=== PATIENT | male | born 1960 | race Two or more races ===

== ENCOUNTER → 2024-10-19 | Outpatient (CLI) | payer MEDICARE, SELFPAY ==
--- NOTE | 2024-10-19 09:12 | XR_ITS ---
Examination: Knee bilateral, 6 views Technique: Knee AP, lateral, oblique each knee total 6 views Date and time of exam: October 19, 2024 0942 hours INDICATIONS: Bilateral knee pain beginning one month ago after falling FINDINGS: Significant osteopenia Bilateral advanced osteoarthritis medial patellofemoral joints No fracture or dislocation involving either knee IMPRESSION: No fracture involving either knee
== END | disposition home or self-care (01) ==
PROVIDERS: PCP Nurse Practitioner Family; Referring Provider Nurse Practitioner Family; Visit Provider Nurse Practitioner Family
DX: M25.562 Pain in left knee (principal); M25.561 Pain in right knee
CPT/HCPCS: 73562

== ENCOUNTER 2025-03-25 08:30 | Outpatient (RCR) | payer MEDICARE, SELFPAY ==
--- NOTE | 2025-03-15 08:36 | PT.OIERPT ---
PT OP Initial Eval Patient Information Outpatient Physical Therapy Treatment Date: 03/15/25 Visit Reasons: knee PAIN Medical Diagnosis: M25.569 Treatment Dx #1: Bilateral Knee Pain Treatment Dx #2: Bilateral Knee Mobility Deficits Start of Care: 03/15/25 Date of Onset: 1 year ago Smoking Status Smoking Status: Never smoker Initial Assessment Subjective: Pt is a 64 y/o male reports of chronic bilateral knee pain (5/10) worsening in the past year. Pt's most recent xray showed moderate to advanced knee OA. Pt has limitation with standing, walking, chores, balance, self care, stairs, and squatting. Objective: Bilateral Knee AROM: -5 deg to 120 deg with pain Bilateral Knee MMTs: grossly 4-/5 Bilateral Hip AROM: all motions are WFL Bilateral Hip MMTs: grossly 3/5 Muscle Length: Hs tightness Knee Observation: increase knee varus Assessment: Pt demonstrate bilateral knee pain with mobility deficits leading to difficulty with ADLs. Pt will attempt physical therapy if pain persist Pt will be refer back to provider for further consultation Short Term and [facility] Goals 1) Increase bilateral knee flexion AROM WFL in 6 wks to be able to perform chores 2) Decrease knee pain to 2/10 in 6 wks to be able to stand more than 30 mins 3) Increase bilateral knee MMTs grossly to 4/5 in 6 wks to be able to perform squatting activities 4) Increase hip MMTs grossly to 4-/5 in 6 wks to be able to walk more than 30 mins 5) Indep with HEP Treatment Plan 1) Manual Therapy 2) Therapeutic Activities 3) Therapeutic Exercises 4) Modalities (ice, heat) 5) Balance Training 6) Gait Training Frequency and Duration: 2 x wk for 6 wks Certification Dates: 03/15/25 to 06/13/25 Procedure Charges OP PT Eval Mod Complex 30 minutes: Yes
--- NOTE | 2025-03-25 08:52 | PT.ODAYNRPT ---
PT Outpatient Daily Note OP Daily Note Outpatient Physical Therapy Treatment Date: 03/25/25 Visit Reasons: knee PAIN Subjective: Pt's knee is feeling fine and good . No new concerns to report. Objective: Please see flow chart for list of ther ex performed Assessment: tolerate exercises with minimal pain; frequent cues given to correct SLS to decrease use of hands and extend knee Plan: Continue with PT Length of Time (minutes) of Treatment: 30 Minutes Procedure Charges Therapeutic Exercise 30 minutes: Yes
== END 2025-03-27 23:59 | disposition home or self-care (01) ==
LOC: CPTX 08:30
PROVIDERS: PCP Physician Assistant; Referring Provider Physician Assistant; Visit Provider Physician Assistant
DX: M25.562 Pain in left knee (principal); M25.561 Pain in right knee; R26.2 Difficulty in walking, not elsewhere classified; R26.89 Other abnormalities of gait and mobility; G89.29 Other chronic pain; M17.9 Osteoarthritis of knee, unspecified
CPT/HCPCS: 97110; 97162